=== PATIENT | female | born 1930 | race Caucasian/White ===

== ENCOUNTER → 2017-12-18 | Outpatient (CLI) | payer MEDICARE ==
[~2017-12-18] MED LIST: BONIVA150 MG; CEFUROXIME250 MG PO; DONEPEZIL HCL10 MG PO; POTASSIUM CHLO10 ME1 PO; SERTRALINE HCL100 MG PO; SIMVASTATIN20 MG PO; TRIAMTERENE-HC1 EAC2
--- NOTE | 2017-12-26 08:44 | Diagnostic Imaging Report ---
#[id number] - MGSCRLT #UNILATERAL LEFT DIGITAL SCREENING MAMMOGRAM WITH CAD: 12/18/2017 CLINICAL: Routine screening. Comparison is made to exams dated: 12/16/2015 mammogram, 01/27/2015 mammogram and 02/03/2014 mammogram - [facility]. Current study contains 4 films. There are scattered fibroglandular elements in the left breast. Current study was also evaluated with a Computer Aided Detection (CAD) system. There are benign vascular calcifications and calcifications in the left breast. There is a mole marker on the left breast. No significant masses, calcifications, or other findings are seen in the breast. There has been no significant interval change. IMPRESSION: BENIGN There is no mammographic evidence of malignancy. A 1 year screening mammogram is recommended. The patient will be notified by letter of the results. Familia kilpatrick/maggi:12/25/2017 16:41:18 Financial Manager: Shae BEE(R)(M), [facility] letter sent: Compared to Prior B9 Mammogram BI-RADS: 2 Benign
== END ==
LOC: MAMMO 12:54
PROVIDERS: ATTEND Family Medicine
DX: Z12.31 Encounter for screening mammogram for malignant neoplasm of breast (principal)

== ENCOUNTER → 2018-08-28 | Outpatient (CLI) | payer MEDICARE ==
--- NOTE | 2018-08-28 13:37 | Diagnostic Imaging Report ---
EXAM: Renal Ultrasound INDICATION: Urinary tract infection ^[id number] ^1038 ^URINARY TRACT INFECTION COMPARISON: None TECHNIQUE: Transverse and longitudinal images of the kidneys and bladder were obtained. FINDINGS: Right Kidney: Length: 11.3 x 5.7 x 3.7 cm Appearance: Increased echogenicity. Collecting system: No hydronephrosis Stones: None Cyst/Mass: 2.1 x 2.0 x 2.2 cm right mid parapelvic cyst Left Kidney: Length: 9.9 x 4.6 x 3.8 cm Appearance: Normal echogenicity. Collecting system: No hydronephrosis Stones: None Cyst/Mass: 1.7 x 1.3 x 1.6 cm simple appearing mid left renal cyst. Bladder: Normal IMPRESSION: Increased echogenicity in the kidneys could be due to chronic medical renal disease. 2.1 x 2.0 x 2.2 cm right mid parapelvic cyst 1.7 x 1.3 x 1.6 cm simple appearing mid left renal cyst. Signed by: Dr. Balwinder Coon M.D. on 08/28/2018 1:33 PM
--- NOTE | 2018-08-28 14:24 | Diagnostic Imaging Report ---
EXAM: ABDOMEN-1VIEW (KUB) DATE: 08/28/2018 10:10 AM INDICATION: ^[id number] ^1011 ^URINARY TRACT INFECTION COMPARISON: None FINDINGS: Single supine view of the abdomen shows a normal distribution of air in the small and large bowel. There is a 4 mm calcification projected in the left upper abdomen. This may be related to the upper pole left kidney. Curvilinear calcifications projected in the right upper abdomen are more likely vascular or related to gallstones. Fusion hardware is seen in the lower lumbar spine. Vertebral plasty cement is seen in the lower thoracic spine. Bilateral hip arthroplasties are noted. IMPRESSION: 1. Normal bowel pattern. 2. 4 mm calcification possibly related to the upper pole left kidney. 3. Curvilinear calcifications in the right upper abdomen may be related to gallstones or atherosclerotic vessels. Signed by: Dr. Sajan Tiwari M.D. on 08/28/2018 2:20 PM
== END ==
LOC: US 09:53
PROVIDERS: ATTEND Urology
DX: N39.0 Urinary tract infection, site not specified (principal)
CPT/HCPCS: 74018; 76770

== ENCOUNTER → 2018-09-04 | Outpatient (CLI) | payer MEDICARE ==
--- NOTE | 2018-09-04 13:25 | Diagnostic Imaging Report ---
EXAM: CT Abdomen and Pelvis WITHOUT intravenous contrast INDICATION: Renal calculi, flank pain COMPARISON: Renal ultrasound of 08/28/2018, KUB of 08/28/2018 TECHNIQUE: Abdomen and pelvis were scanned utilizing a multidetector helical scanner from the lung base to the pubic symphysis without administration of IV contrast. Coronal and sagittal reformations were obtained. IV CONTRAST: None ORAL CONTRAST: None COMPLICATIONS: None RADIATION DOSE: Total DLP: 356.4 mGy*cm Dose modulation, iterative reconstruction, and/or weight based adjustment of the mA/kV was utilized to reduce the radiation dose to as low as reasonably achievable. FINDINGS: LOWER THORAX: Images of the lung bases are degraded by respiratory motion artifact. Possible 5 mm right middle lobe nodule (image 3 series 3). No focal consolidation. Moderate sliding hiatal hernia. HEPATOBILIARY: No focal hepatic lesions. No biliary ductal dilatation. The gallbladder appears unremarkable. SPLEEN: No splenomegaly. PANCREAS: No focal masses or ductal dilatation. ADRENALS: No adrenal nodules. KIDNEYS/URETERS: No hydronephrosis. The large calcifications on the right seen on prior KUB reflect vascular calcifications rather than renal calculi. There is a punctate 3 mm nonobstructive right lower pole renal calculus. A 3.3 cm hyperattenuating mass is seen at the lateral lower pole of the left kidney with some internal calcifications. There is also a 2.5 cm simple cyst at the left lower pole and a 1.8 cm left midpole cyst. PELVIC ORGANS/BLADDER: Extensive streak artifact from bilateral hip arthroplasty obscures evaluation of most of the pelvis. No large mass lesions identified. PERITONEUM / RETROPERITONEUM: No free air or fluid. LYMPH NODES: No lymphadenopathy. VESSELS: Atherosclerotic calcifications involve the nonaneurysmal abdominal aorta and major branches. GI TRACT: Sigmoid and descending colonic diverticulosis with no CT evidence of diverticulitis. No abnormal bowel wall thickening or bowel obstruction. Normal appendix. BONES AND SOFT TISSUES: Bilateral total hip replacement. Posterior lumbar spinal fusion at L4 through S1. Old compression fracture of L1 status post vertebral augmentation. Diffuse degenerative changes of the remainder of the visualized spine. Diffuse osteopenia. IMPRESSION: Large calcifications overlying the right kidney seen on prior KUB represent vascular calcifications rather renal calculi. 3.3 cm hyperattenuating mass at the lateral aspect of the lower pole of the left kidney with some internal calcifications is incompletely evaluated on this noncontrast CT. Recommend contrast enhanced renal mass protocol CT or MRI for further evaluation. Punctate 3 mm nonobstructive right lower pole renal calculus. Signed by: Layla Banegas MD on 09/04/2018 1:22 PM
== END ==
LOC: CT 09:19
PROVIDERS: ATTEND Urology
DX: N20.0 Calculus of kidney (principal)
CPT/HCPCS: 74176

== ENCOUNTER → 2018-09-18 | Outpatient (CLI) | payer MEDICARE ==
[~2018-09-18] MED LIST changes: +CETIRIZINE HCL10 MG; +COLACE100 MG PO; +MELATONIN3 MG PO
[2018-09-18 08:54] LABS: CREATININE, SERUM 2.13 mg/dL (0.57-1.11)
== END ==
LOC: LAB 05:00 → CT 07:32
PROVIDERS: ATTEND Urology
DX: N28.1 Cyst of kidney, acquired (principal)
CPT/HCPCS: 36415; 82565; 84520

== ENCOUNTER → 2018-10-01 | Outpatient (CLI) | payer MEDICARE ==
[~2018-10-01] MED LIST changes: -CETIRIZINE HCL10 MG; -COLACE100 MG PO; -MELATONIN3 MG PO
--- NOTE | 2018-10-01 14:57 | Diagnostic Imaging Report ---
MRI of the abdomen, without contrast, 10/01/2018. History: Evaluation of left renal lesion. Comparison: CT 09/04/2018, ultrasound 08/28/2018. Technique: Multiplanar, multisequence imaging of the abdomen was performed without contrast due to patient abnormal renal function. Discussion: Elevation is limited without IV contrast. 2 oval circumscribed T2-hyperintense, T1-isointense lesions are present in the left kidney, the largest in the lower pole measuring 3.6 x 2.7 cm, consistent with simple cysts. Additionally, multiple oval T2-hypointense, T1-isointense lesions are present in both kidneys, the largest on the right in the lower pole measuring 1.5 cm and the largest on the left located in the lower pole measuring 2.4 x 3.6 cm, which corresponds to the hyperdense lesion described on the CT. The lesion has homogeneous signal intensity. Evaluation for enhancement cannot be made without IV contrast. The kidneys are normal in size bilaterally. There is no evidence of hydronephrosis. The liver, gallbladder, spleen, pancreas, and adrenal glands are unremarkable. The visualized loops of bowel are unremarkable. There is no evidence of adenopathy. IMPRESSION: Left renal lower pole lesion most likely represents a hemorrhagic/proteinaceous cyst. Additional complicated cysts are noted bilaterally as well as 2 simple cysts on the left. Follow-up CT or MRI in 6 months may be obtained. Signed by: Delfin Billingsley on 10/01/2018 2:54 PM
== END ==
LOC: MRI 09:23
PROVIDERS: ATTEND Urology
DX: N28.1 Cyst of kidney, acquired (principal)
CPT/HCPCS: 74181

== ENCOUNTER 2018-11-21 12:27 | Inpatient (IN) | payer MEDICARE ==
[~2018-11-21] VITALS: Ht 160 cm; Wt 63.5 kg
--- OUTSIDE RECORDS SUMMARY | 2018-11-21 12:30 | XMS REPORT ---
Author Author [facility] Address Unknown Phone Unavailable Care Team Providers Care Bee Producer Name Role Phone ARNULFO JAEGER Unavailable Unavailable Jim FELICIANO Unavailable Unavailable Problems This patient has no known problems. Allergies, Adverse Reactions, Alerts This patient has no known allergies or adverse reactions. Medications This patient has no known medications. Results Test Description Test Time Test Comments Text Results Atomic Results Result Comments MRI ABDOMEN WO 2018-10-01 14:38:00 [place] [address] Patient Name: Jovita MAIER MR #: [id number] : 1930 Age/Sex: 88/F Req #: [id number] Adm Physician: Ordered by: ARNULFO JAEGER MD Report #: [id number] Location: MRI Room/Bed: Procedure: [id number] MRI/MRI ABDOMEN WO Exam Date: Exam Time: REPORT STATUS: Signed MRI of the abdomen, without contrast, 10/01/2018. History: Lucita luation of left renal lesion. Comparison: CT 09/04/2018, ultrasound 08/28/2018. Technique: Multiplanar, multisequence imaging of the abdomen was performed without contrast due to patient abnormal renal function. Discussion: Elevation is limited without IV contrast. 2 oval circumscribed T2-hyperintense, T1-isointense lesions are present in the left kidney, the largest in the lower pole measuring 3.6 x 2.7 cm, consistent with simple cysts. Additionally, multiple oval T2-hypointense, T1-isointense lesions are present in both kidneys, the largest on the right in the lower pole measuring 1.5 cm and the largest on the left located in the lower pole measuring 2.4 x 3.6 cm, which corresponds to the hyperdense lesion described on the CT. The lesion has homogeneous signal intensity. Evaluation for enhancement cannot be made without IV contrast. The kidneys are normal in size bilaterally. There is no evidence of hydronephrosis. The liver, gallbladder, spleen, pancreas, and adrenal glands are unremarkable. The visualized loops of bowel are unremarkable. There is no evidence of adenopathy. IMPRESSION: Left renal lower pole lesion most likely represents a hemorrhagic/proteinaceous cyst. Additional complicated cysts are noted bilaterally as well as 2 simple cysts on the left. Follow-up CT or MRI in 6 months may be obtained. Signed by: Delfin Billingsley on 10/01/2018 2:54 PM Dictated By: DELFIN BILLINGSLEY MD Transcribed By: DANIEL on 10/01/184 COPY TO: ARNULFO JAEGER MD CT ABDOMEN/PELVIS WO 2018-09-04 13:02:00 [place] [address] Patient Name: Jovita MAIER MR #: [id number] : 1930 Age/Sex: 88/F Req #: [id number] Adm Physician: Ordered by: ARNULFO JAEGER MD Report #: [id number] Location: CT Room/Bed: Procedure: CT/CT ABDOMEN/PELVIS WO Exam Date: 09/04/18 Exam Time: 1000 REPORT STATUS: Signed EXAM: CT Abdomen and Pelvis WITHOUT intravenous contrast INDICATION: Renal calculi, flank pain COMPARISON: Renal ultrasound of 08/28/2018, KUB of 08/28/2018 TECHNIQUE: Abdomen and pelvis were scanned utilizing a multidetector helical scanner from the lung base to the pubic symphysis without administration of IV contrast. Coronal and sagittal reformations were obtained. IV CONTRAST: None ORAL CONTRAST: None COMPLICATIONS: None RADIATION DOSE: Total DLP: 356.4 mGy*cm Dose modulation, iterative reconstruction, and/or weight based adjustment of the mA/kV was utilized to reduce the radiation dose to as low as reasonably achievable. FINDINGS: LOWER THORAX: Images of the lung bases are degraded by respiratory motion artifact. Possible 5 mm right middle lobe nodule (image 3 series 3). No focal consolidation. Moderate sliding hiatal hernia. HEPATOBILIARY: No focal hepatic lesions. No biliary ductal dilatation. The gallbladder appears unremarkable. SPLEEN: No splenomegaly. PANCREAS: No focal masses or ductal dilatation. ADRENALS: No adrenal nodules. KIDNEYS/URETERS: No hydronephrosis. The large calcifications on the right seen on prior KUB reflect vascular calcifications rather than renal calculi. There is a punctate 3 mm nonobstructive right lower pole renal calculus. A 3.3 cm hyperattenuating mass is seen at the lateral lower pole of the left kidney with some internal calcifications. There is also a 2.5 cm simple cyst at the left lower pole and a 1.8 cm left midpole cyst. PELVIC ORGANS/BLADDER: Extensive streak artifact from bilateral hip arthroplasty obscures evaluation of most of the pelvis. No large mass lesions identified. PERITONEUM / RETROPERITONEUM: No free air or fluid. LYMPH NODES: No lymphadenopathy. VESSELS: Atherosclerotic calcifications involve the nonaneurysmal abdominal aorta and major branches. GI TRACT: Sigmoid and descending colonic diverticulosis with no CT evidence of diverticulitis. No a bnormal bowel wall thickening or bowel obstruction. Normal appendix. BONES AND SOFT TISSUES: Bilateral total hip replacement. Posterior lumbar spinal fusion at L4 through S1. Old compression fracture of L1 status post vertebral augmentation. Diffuse degenerative changes of the remainder of the visualized spine. Diffuse osteopenia. IMPRESSION: Large calcifications overlying the right kidney seen on prior KUB represent vascular calcifications rather renal calculi. 3.3 cm hyperattenuating mass at the lateral aspect of the lower pole of the left kidney with some internal calcifications is incompletely evaluated on this noncontrast CT. Recommend contrast enhanced renal mass protocol CT or MRI for further evaluation. Punctate 3 mm nonobstructive right lower pole renal calculus. Signed by: Mandi Purcell MD on 09/04/2018 1:22 PM Dictated By: MANDI PURCELL MD 1322 Transcribed By: DANIEL on 09/04/18 1322 COPY TO: ARNULFO JAEGER MD ABDOMEN-1VIEW (KUB) 2018-08-28 14:17:00 [place] [address] Patient Name: Jovita MAIER MR #: [id number] : 1930 Age/Sex: 88/F Req #: [id number] Adm Physician: Ordered by: ARNULFO JAEGER MD Report #: [id number] Location: Room/Bed: Procedure: [id number] DX/ABDOMEN-1VIEW (KUB) Exam Date: 08/28/18 Exam Time: 1011 REPORT STATUS: Signed EXAM: ABDOMEN-1VIEW (KUB) DATE: 08/28/2018 10:10 AM INDICATION: [id number] 1011 URINARY TRACT INFECTION COMPARISON: None FINDINGS: Single supine view of the abdomen shows a normal distribution of air in the small and large bowel. There is a 4 mm calcification projected in the left upper abdomen. This may be related to the upper pole left kidney. Curvilinear calcifications projected in the right upper abdomen are more likely vascular or related to gallstones. Fusion hardware is seen in the lower lumbar spine. Vertebral plasty cement is seen in the lower thoracic spine. Bilateral hip arthroplasties are noted. IMPRESSION: 1. Normal bowel pattern. 2. 4 mm calcification possibly related to the upper pole left kidney. 3. Curvilinear calcifications in the right upper abdomen may be related to gallstones or atherosclerotic vessels. Signed by: Dr. Sajan Perez M.D. on 08/28/2018 2:20 PM Dictated By: SAJAN PEREZ MD 19 Transcribed By: DANIEL on 08/28/18 142 COPY TO: ARNULFO JAEGER MD US RENAL RETROPERITONEAL COMP 2018-08-28 13:31:00 [place] [address] Patient Name: Jovita MAIER MR #: [id number] : 1930 Age/Sex: 88/F Req #: [id number] Adm Physician: Ordered by: ARNULFO JAEGER MD Report #: [id number] Location: Room/Bed: Procedure: [id number] US/US RENAL RETROPERITONEAL COMP Exam Date: 08/28/18 Exam Time: 1038 REPORT STATUS: Signed EXAM: Renal Ultrasound INDICATION: Urinary tra ct infection [id number] URINARY TRACT INFECTION COMPARISON: None TECHNIQUE: Transverse and longitudinal images of the kidneys and bladder were obtained. FINDINGS: Right Kidney: Length: 11.3 x 5.7 x 3.7 cm Appearance: Increased echogenicity. Collecting system: No hydronephrosis Stones: None Cyst/Mass: 2.1 x 2.0 x 2.2 cm right mid parapelvic cyst Left Kidney: Length: 9.9 x 4.6 x 3.8 cm Appearance: Normal echogenicity. Collecting system: No hydronephrosis Stones: None Cyst/Mass: 1.7 x 1.3 x 1.6 cm simple appearing mid left renal cyst. Bladder: Normal IMPRESSION: Increased echogenicity in the kidneys could be due to chronic medical renal disease. 2.1 x 2.0 x 2.2 cm right mid parapelvic cyst 1.7 x 1.3 x 1.6 cm simple appearing mid left renal cyst. Signed by: Dr. Elsy Kendall M.D. on 08/28/2018 1:33 PM Dictated By: ELSY KENDALL MD, MD 1333 Transcribed By: DANIEL on 08/28/18 1333 COPY TO: ARNULFO JAEGER MD MAMMOGRAPHY DIGITAL SCR UNI LT 2017-12-18 13:46:00 [place] [address] Patient Name: Jovita MAIER MR #: [id number] : 1930 Age/Sex: 87/F Req #: [id number] Adm Physician: Ordered by: EUGENIO FELICIANO MD Report #: [id number] Location: MAMMO Room/Bed: Procedure: [id number] MG/MAMMOGRAPHY DIGITAL SCR UNI LT Exam Date: 12/18/17 Exam Time: 1320 REPORT STATUS: Signed #[id number] - MGSCRLT #UNILATERAL LEFT DIGITAL SCREENING MAMMOGRAM WITH CAD: 12/18/2017 CLINICAL: Routine screening. Comparison is made to exams dated: 12/16/2015 mammogram, 01/27/2015 mammogram and 02/03/2014 mammogram - [facility]. Current study contains 4 films. There are scattered fibroglandular elements in the left breast. Current study was also evaluated with a Computer Aided Detection (CAD) system. There are benign vascular calcifications and calcifications in the left breast. There is a mole marker on the left breast. No significant masses, calcifications, or other findings are seen in the breast. There has been no significant interval change. IMPRESSION: BENIGN There is no mammographic evidence of malignancy. A 1 year screening mammogram is recommended. The patient will be notified by letter of the results. Familia kilpatrick/maggi:12/25/2017 16:41:18 Activities Specialist: Shae BEE(R)(M), [facility] letter sent: Compared to Prior B9 Mammogram BI- RADS: 2 Benign Dictated By: FAMILIA JACOBS DO 1641 Transcribed By: MAGGI on 12/25/17 1641 COPY TO: EUGENIO FELICIANO MD
[2018-11-21] MEDS ORDERED: SODIUM CHLORIDE FLUSH 10 ML SYR INJ PRN (12:45)
[2018-11-21 13:40] LABS: BASOPHILS % 0.6 % (0.0-1.0); EOSINOPHILS # (AUTO) 0.1 (0.0-0.4); EOSINOPHILS % 1.6 % (0.0-6.0); HEMATOCRIT 37.8 % (34.2-44.1); HEMOGLOBIN 12.9 g/dL (12.0-16.0); LYMPHOCYTES # (AUTO) 2.4 (1.0-3.2); LYMPHOCYTES % 34.6 % (18.0-39.1); MEAN CORPUSCULAR HEMOGLOBIN 31.5 pg (28-32); MEAN CORPUSCULAR HGB CONC 34.1 g/dL (31-35); MEAN CORPUSCULAR VOLUME 92.2 fL (81-99); MONOCYTES # (AUTO) 0.5 (0.2-0.8); MONOCYTES % 6.7 % (4.4-11.3); NEUTROPHILS # (AUTO) 3.8 (2.1-6.9); NEUTROPHILS % 56.2 % (38.7-80.0); PLATELET COUNT 285 x10e3/uL (140-360); RED CELL DISTRIBUTION WIDTH 12.7 % (11.7-14.4)
--- NOTE | 2018-11-21 13:42 | NUR ---
PT STATES UNABLE TO GIVE UA AT THIS TIME. OK PER ER MD TO START IV ANTIBIOTIC AND OBTAIN UA ON FLOOR
[2018-11-21 13:56] LABS: ALBUMIN 4.3 g/dL (3.5-5.0); ALBUMIN/GLOBULIN RATIO 1.2 (0.8-2.0); ANION GAP 16.1 mmol/L (8-16); CALCIUM 11.3 mg/dL (8.4-10.2); CREATININE, SERUM 2.49 mg/dL (0.57-1.11); POTASSIUM 3.1 mmol/L (3.5-5.1)
[2018-11-21] MEDS: MEROPENEM 1GM 100 ML IV SCH (14:27)
[2018-11-21 14:29] LABS: CLARITY,URINE SL CLOUDY (CLEAR); COLOR,URINE YELLOW (YELLOW)
[2018-11-21 14:30] LABS: BILIRUBIN,URINE 1+ (NEGATIVE); KETONES,URINE TRACE (NEGATIVE); LEUKOCYTE ESTERASE ,URINE 1+ (NEGATIVE); NITRITE,URINE NEGATIVE (NEGATIVE); PROTEIN,URINE DIPSTICK TRACE (NEGATIVE); URINE UROBILINOGEN 0.2 mg/dL (0.2 - 1)
--- NOTE | 2018-11-21 14:38 | NUR ---
Received patient lying in bed. Respiration even and unlabored without SOB. Call light in reach. at bedside.
[2018-11-21 14:43] LABS: BACTERIA,URINE MANY /HPF
[2018-11-21 14:58] VITALS: BP 132/60
[2018-11-21 15:17] VITALS: BP 132/60
[2018-11-21 16:20] VITALS: BP 132/60
[2018-11-21] MEDS: SODIUM CHLORIDE 0.9% 1000ML 1,000 ML IV SCH (17:00)
[2018-11-21] MEDS ORDERED: MELATONIN3 MG PO (18:14)
[2018-11-21] MEDS ORDERED: COLACE100 MG PO (18:14)
[2018-11-21] MEDS ORDERED: CETIRIZINE HCL10 MG (18:14)
[2018-11-21] MEDS ORDERED: POTASSIUM CHLORIDE 20 MEQ TAB CR PO STA (18:18)
--- NOTE | 2018-11-21 19:12 | Consultation ---
DATE OF CONSULTATION: REASON FOR CONSULTATION: Acute kidney injury. HISTORY OF PRESENT ILLNESS: The patient is a pleasant 88-year-old female with past medical history of hypertension, recurrent urinary tract infection and dementia, who was admitted with ESBL Escherichia coli urinary tract infection. The patient sees Dr. Garvey as an outpatient and had a urine culture done that showed ESBL Escherichia coli and patient was on cefuroxime that did not help with her infections, so she got directly admitted for IV meropenem. ID has been consulted. The patient currently denies having any nausea, vomiting, or diarrhea. Doctor is at bedside. PAST MEDICAL HISTORY: As above. PAST SURGICAL HISTORY: Back surgery, right knee replacement, hysterectomy. ALLERGIES: CODEINE, PENICILLIN. MEDICATIONS: The patient is on triamterene/hydrochlorothiazide at home and cefuroxime p.o. FAMILY HISTORY: No history of any kidney disease. SOCIAL HISTORY: No history of tobacco, alcohol, or intravenous drug abuse. Lives at home with her . PHYSICAL EXAMINATION: VITAL SIGNS: Blood pressure 132/60, pulse of 74, respirations 16, temperature 98.3. GENERAL: Awake, alert, not in apparent distress. HEENT: PERRLA. Extraocular muscles are intact. NECK: No JVD. HEART: S1, S2. LUNGS: Clear to auscultation bilaterally. ABDOMEN: Soft, nontender, nondistended. Bowel sounds positive. EXTREMITIES: No edema. NEUROLOGIC: No focal deficits. SKIN: No new rash. LABORATORY DATA: Sodium 138, potassium 3.1, chloride 90, CO2 of 27, BUN 40, creatinine 2.49, and glucose 176. Baseline creatinine from 09/18/2018 was 2.13. White count 6.8, hemoglobin 12.9, platelet count is 285. ASSESSMENT/PLAN: 1. Acute on chronic kidney disease stage 4. Baseline creatinine from 09/18/2018 was 2.13 with GFR of 22. This acute worsening is likely prerenal insufficiency secondary to urinary tract infection. Agree with changing to Merrem. Agree with the IV fluid and holding triamterene/hydrochlorothiazide for now. The patient had a renal ultrasound done in August 2018 that showed right kidney was 11.3 cm and left kidney was 9.9 cm with renal cysts. We will not repeat the renal ultrasound at this point. Avoid all nephrotoxic medications. Antibiotic doses per creatinine clearance. 2. Extended spectrum beta-lactamase Escherichia coli urinary tract infection. Meropenem 500 mg IV q. 24 hours. ID has been consulted. 3. Hypertension, currently controlled. Hold diuretics. Discussed with the daughter at bedside. I want to thank Dr. Burgess for the consult. MD TONJA Huerta/NIKOS /[id number]
--- NOTE | 2018-11-21 19:25 | NUR ---
Report given to night shift supervisor. Respiration even and unlabored without SOB. Call light in reach.
[2018-11-21 19:30] VITALS: BP 96/53
--- NOTE | 2018-11-21 19:30 | NUR ---
patient received awake, alert, sitting up in chair. vss. no c/o pain noted. ivf continue to infuse without difficulty. pm assessment complete. noted at the bedside. patient/ instructed to call for assistance when needed.
[2018-11-21 20:00] VITALS: BP 96/53
[2018-11-21] MEDS: DONEPEZIL HCL 5 MG TAB PO SCH (20:17)
[2018-11-21] MEDS: SIMVASTATIN 20 MG TAB PO SCH (20:17)
[2018-11-21] MEDS: DOCUSATE SODIUM 100 MG CAP PO SCH (20:17)
[2018-11-21] MEDS ORDERED: SERTRALINE HCL 100 MG TAB PO SCH (21:00)
[2018-11-21] MEDS ORDERED: MELATONIN 3 MG TAB PO PRN (21:00)
[2018-11-22] VITALS (8 sets, daily range): BP systolic 102–119; BP diastolic 52–69
[2018-11-22] MEDS: MEROPENEM 1GM 100 ML IV SCH ×2 (00:26→14:12)
--- NOTE | 2018-11-22 00:38 | History and Physical ---
The patient is an 88-year-old female who was admitted directly from Dr. Garvey's office for urinary tract infection, failed outpatient treatment, need of IV antibiotic. HISTORY OF PRESENT ILLNESS: Ms. Garcias is an 88-year-old female with a frequent history of UTI, referred to Dr. Garvey for urinary tract infections, who was on sulfamethoxazole for long-term, but the last visit, the patient had a urinary culture done and the patient grew out ESBL, sensitive to only IV antibiotics and resistant to p.o. antibiotics. The patient was admitted to the hospital, started on Merrem and a consult with Dr. Berry was done too. The patient remained on Merrem and also was found to have a creatinine level of 2.49, baseline was 1.34. The patient also has a consult with Nephrology. PAST MEDICAL HISTORY: History of dementia, history of hypertension, history of hyperlipidemia, history of depression, and history of insomnia. MEDICATIONS: Medicines she takes at home are sertraline 100 mg daily, Dyazide 37.5/25 mg daily, simvastatin 20 mg daily, cefuroxime axetil 250 mg daily, donepezil 23 mg daily and melatonin 6 mg at evening. The patient also was taking sulfamethoxazole/trimethoprim one daily also takes cranberry tablets stool softeners as needed and Tylenol p.r.n. at bedtime, SOCIAL HISTORY: Lives with . No EtOH. No IV drug abuse. No history of smoking either. ALLERGIES: ALLERGIC TO PENICILLIN AND CODEINE. CODE STATUS: The patient is a full code. PHYSICAL EXAMINATION: GENERAL: The patient is alert and oriented x2, comes in and out of admission. CVS: S1 and S2 normal. Regular rate and rhythm. ABDOMEN: Soft, nontender, and nondistended. EXTREMITIES: No clubbing. No cyanosis. No edema. LABORATORY VALUES: Initial white count is 6.84, hemoglobin 12.9, and hematocrit 37.8. The patient's sodium is 138, potassium 3.1, BUN of 40, creatinine of 2.49, glucose is 176, and calcium of 11.3. MICROBIOLOGY: Urine cultures and blood cultures are pending, but urine culture from Dr. Garvey office grew ESBL. ASSESSMENT: 1. Urinary tract infection, failed outpatient treatment with multi-drug resistant ESBL. 2. History of dementia. 3. Hypertension. 4. Chronic kidney disease with acute renal injury and dehydration. PLAN: Hold back on the Dyazide. Continue with cefuroxime axetil. The patient also have the Merrem on going. A PICC line was ordered. The patient could not elevated with a diuresis, we will continue the fluids and keep ongoing fluids. Hold back on the diuretics. Further recommendation per clinical course. We will continue to monitor the patient. FINAL DIAGNOSIS: Urinary tract infection, acute on chronic kidney disease, and dementia with depression. Further recommendation per clinical course. We will continue to monitor the patient with ID and also with Nephrology and Neurology. MD JOSE ALEJANDRO Crooks/MODL /[id number]
--- NOTE | 2018-11-22 06:00 | NUR ---
patient appears to be resting quietly. no c/o pain noted throughout the night. ivf continue to infuse without difficulty. remains at the bedside.
[2018-11-22] MEDS: SODIUM CHLORIDE 0.9% 1000ML 1,000 ML IV SCH ×2 (06:33→07:58)
[2018-11-22 06:50] LABS: BASOPHILS % 0.8 % (0.0-1.0); EOSINOPHILS # (AUTO) 0.1 (0.0-0.4); EOSINOPHILS % 2.8 % (0.0-6.0); HEMATOCRIT 30.2 % (34.2-44.1); LYMPHOCYTES # (AUTO) 1.3 (1.0-3.2); MEAN CORPUSCULAR HGB CONC 33.1 g/dL (31-35); MEAN CORPUSCULAR VOLUME 93.5 fL (81-99); MONOCYTES # (AUTO) 0.4 (0.2-0.8); MONOCYTES % 11.2 % (4.4-11.3); NEUTROPHILS % 50.7 % (38.7-80.0); PLATELET COUNT 199 x10e3/uL (140-360); RED BLOOD COUNT 3.23 x10e6/uL (3.6-5.1); RED CELL DISTRIBUTION WIDTH 12.6 % (11.7-14.4)
[2018-11-22 07:06] LABS: ANION GAP 13.1 mmol/L (8-16); CALCIUM 9.5 mg/dL (8.4-10.2); CREATININE, SERUM 1.58 mg/dL (0.57-1.11); POTASSIUM 3.1 mmol/L (3.5-5.1)
--- NOTE | 2018-11-22 07:10 | NUR ---
RECEIVED PATIENT LYING IN BED WITH EYES OPEN. RESPIRATION EVEN AND UNLABORED WITHOUT SOB. SPOUSE AT BEDSIDE. CALL LIGHT IN REACH.
--- NOTE | 2018-11-22 07:29 | Progress Note ---
DATE: SUBJECTIVE: The patient is an 88-year-old female with a history of recurrent urinary tract infection, dementia, and infection of the hardware from orthopedic intervention with continuum of antibiotics at home. OBJECTIVE: GENERAL: The patient is currently alert and oriented x1, in and out of confusion. No chest pain. No shortness of breath. The patient's is by the bedside. VITAL SIGNS: Temperature is 97.6, pulse of 62, respirations of 20, blood pressure is 113/55, pulse oximetry 100%. HEENT: Normocephalic, atraumatic. Pupils reactive to light and accommodation. CVS: S1 and S2 normal. Regular rate and rhythm. ABDOMEN: Nontender and nondistended. EXTREMITIES: No clubbing, no cyanosis, no edema. LABORATORY VALUES: Today's numbers are pending. Hemoglobin is 12.9, hematocrit 37.8, BUN 40, creatinine of 2.49 from yesterday, pending from today. Urine positive for urinary tract infection. MICROBIOLOGY: Urine cultures and blood cultures are pending. Again, labs from Dr. Garvey's office shows ESBL positive, sensitive to Merrem. ASSESSMENT: 1. Urinary tract infection. 2. Delirium. 3. Dementia. 4. Hyperlipidemia. 5. Hardware infection with ongoing cephalosporin treatment. PLAN: Continue on Merrem. ID consult has been done. Probiotics will be added. We will await for urine cultures and blood cultures to come back. Further recommendation and clinical course. A PICC line will be placed after creatinine has normalized. The patient has acute renal failure with the last creatinine of 2.4. Diuretics have been stopped and also the patient has been started on IV fluids at 70 mL an hour. MD JOSE ALEJANDRO Crooks/MODL /[id number]
[2018-11-22] MEDS: CEFUROXIME AXETIL 250 MG TAB PO SCH (08:51)
[2018-11-22] MEDS: LACTOBACILLUS ACIDOPHILUS CAPSULE PO SCH ×3 (08:51→17:29)
[2018-11-22] MEDS: SERTRALINE HCL 100 MG TAB PO SCH (08:57)
[2018-11-22] MEDS ORDERED: NON-FORMULARY MEDICATION (Donepezil Hcl 10 MG) PO SCH (09:00)
[2018-11-22] MEDS ORDERED: POTASSIUM CHLORIDE 20 MEQ TAB CR PO ONE (09:10)
[2018-11-22 14:06] LABS: INR 0.92; PROTHROMBIN TIME 12.9 seconds (11.9-14.5)
[2018-11-22] MEDS ORDERED: SODIUM CHLORIDE 0.9% 250ML 250 ML ONE (15:28)
[2018-11-22] MEDS ORDERED: LIDOCAINE HCL 1% LOCAL INJ 20 ML VIAL ONE (15:28)
--- NOTE | 2018-11-22 15:48 | NUR ---
Transported patient to radiology via stretcher for central line placement.
[2018-11-22] MEDS: DOCUSATE SODIUM 100 MG CAP PO SCH (17:22)
[2018-11-22] MEDS: SIMVASTATIN 20 MG TAB PO SCH (17:29)
[2018-11-22] MEDS: DONEPEZIL HCL 5 MG TAB PO SCH (17:29)
--- NOTE | 2018-11-22 17:46 | Diagnostic Imaging Report ---
PROCEDURE: Tunneled central venous catheter placement Procedural Personnel Attending physician(s): Layla Banegas MD Fellow physician(s): None Resident physician(s): None Advanced practice provider(s): None Pre-procedure diagnosis: Bacteremia, urinary tract infection Post-procedure diagnosis: Same Indication: Administration of intermediate antibiotics Additional clinical history: None Complications: No immediate complications. IMPRESSION: Insertion of right-sided single-lumen tunneled Proline catheter, with tip in the expected location of the cavoatrial junction. Plan: The catheter may be used immediately. PROCEDURE SUMMARY: - Venous access with ultrasound guidance - Tunneled central venous catheter insertion with fluoroscopic guidance - Additional procedure(s): None PROCEDURE DETAILS: Pre-procedure Consent: Informed consent for the procedure including risks, benefits and alternatives was obtained and time-out was performed prior to the procedure. Preparation (MIPS): The site was prepared and draped using all elements of maximal sterile barrier technique including sterile gloves, sterile gown, cap, mask, large sterile sheet, sterile ultrasound probe cover, hand hygiene and cutaneous antisepsis with 2% chlorhexidine. Medical reason for site preparation exception (MIPS): Not applicable Anesthesia/sedation Level of anesthesia/sedation: No sedation Access Local anesthesia was administered. The vessel was sonographically evaluated and determined to be patent. Real time ultrasound was used to visualize needle entry into the vessel and a permanent image was stored. Vein accessed: Internal jugular vein Access technique: Micropuncture set with 21 gauge needle Catheter placement An incision was made near the venous access site and the catheter was tunneled subcutaneously to the venous access site and trimmed to appropriate length. The catheter was advanced via a peel-away sheath into the vein under fluoroscopic guidance. Catheter tip location was fluoroscopically verified and a permanent image was stored. Catheter placed: Medcomp Proline single lumen power injectable Catheter size (Hebrew): 6 Catheter flush: Normal saline Closure A sterile dressing was applied. Access site closure technique: Tissue adhesive Catheter securement technique: Non-absorbable suture Contrast Contrast agent: None Radiation Dose Fluoroscopy time (minutes): 0.4 Reference air kerma (mGy): 2.53 Additional Details Additional description of procedure: None Equipment details: None Specimens removed: None Estimated blood loss (mL): Less than 10 Standardized report: [email or web address] Attestation Signer name: Layla Banegas MD I attest that I was present for the entire procedure. I reviewed the stored images and agree with the report as written. Signed by: Layla Banegas MD on 11/22/2018 5:42 PM
--- NOTE | 2018-11-22 19:03 | NUR ---
Report given to die maker bench stamping. Respiration even and unlabored without SOB. Call light in reach.
--- NOTE | 2018-11-22 19:15 | NUR ---
patient received awake, alert, lying quietly in bed. no c/o pain noted. ivf continue to infuse without difficulty. pm assessment complete. remains at the bedside. patient/ instructed to call for assistance when needed.
--- NOTE | 2018-11-22 20:13 | Consultation ---
DATE OF CONSULTATION: REASON FOR CONSULTATION: UTI, multidrug resistant, failing oral antibiotic. HISTORY OF PRESENT ILLNESS: This patient, who is an 88-year-old white female with history of dementia, history of chronic kidney disease, history of renal stone, back surgery, right knee replacement, and hysterectomy. Apparently, back in 2011, she had back wound infection got septic and she had hardware and Infectious Disease at that time told the , she needed to be on antibiotics for the rest of her life. The patient has been having problem with recurrent UTI and she has been on several antibiotics for the last two years or so. She has been seen by Dr. Jersey Garvey. The patient recently grew multidrug resistant pathogen. She was changed here. She was given nitrofurantoin, but in spite of that she was not getting any better. She was sent here to the hospital. She was started on meropenem. I am asked to see her. The patient, who is currently alert, pleasantly confused, sitting in a chair, at the bedside, could not obtain review of systems, but all the history was taken mainly from the . He is telling me that her mental status got worse and she takes antibiotics and that makes her feel better. The patient has no fever and no chills, however. MEDICTATIONS: The patient is currently on: 1. Zoloft. 2. Probiotic. 3. Cefuroxime. 4. Meropenem. LABORATORY DATA: Reviewed. Her urine cultures, gram-negative rods. Her white count is 3.9 and hemoglobin of 10. Her sodium 140, potassium 3.1, and creatinine 1.58, down from 2.49. REVIEW OF SYSTEMS: Per . Otherwise, she is about the same. PHYSICAL EXAMINATION: GENERAL: She is alert, confused, very pleasant. VITAL SIGNS: Stable. Currently afebrile. HEENT: She is not icteric. NECK: Supple. CHEST: Few rhonchi bilaterally. COR: S1 and S2. ABDOMEN: Soft. IMPRESSION AND PLAN: Urinary tract infection, multidrug resistant. Continue meropenem. Await cultures. We will try to give her two weeks of antibiotics to see if it does make any difference clinically, it is hard to assess in a patient, who does have dementia. Chronic back infection, infected hardware, continue with oral cefuroxime as ordered above for life. Acute kidney injury over chronic kidney disease, would need a central line for her IV antibiotics since she has chronic kidney disease. We will follow. MD IRWIN Morataya/NIKOS /[id number]
[2018-11-23] VITALS (7 sets, daily range): BP systolic 109–152; BP diastolic 55–77
--- NOTE | 2018-11-23 | NUR ---
patient appears to be resting quietly. no signs of pain/discomfort noted. ivf continue to infuse without difficulty. remains at the bedside.
[2018-11-23] MEDS: MEROPENEM 1GM 100 ML IV SCH ×2 (00:41→13:00)
[2018-11-23] MEDS: SODIUM CHLORIDE 0.9% 1000ML 1,000 ML IV SCH (01:31)
--- NOTE | 2018-11-23 06:00 | NUR ---
am labs drawn from right ij tunneled catheter without difficulty and sent to lab. here to see patient. patients inquiring about possible discharge home today. home ivabx need to be arranged by case management prior to discharging. patients made aware of this. will inform day shift nurse to ask case management this am when this might be arranged.
[2018-11-23 07:00] LABS: ANION GAP 11.1 mmol/L (8-16); CALCIUM 9.3 mg/dL (8.4-10.2); CREATININE, SERUM 1.02 mg/dL (0.57-1.11); POTASSIUM 3.1 mmol/L (3.5-5.1)
--- NOTE | 2018-11-23 07:30 | NUR ---
RECEIVED PT RESTING QUIETLY. FAMILY AT BEDSIDE.
[2018-11-23] MEDS ORDERED: POTASSIUM CHLORIDE 20 MEQ TAB CR PO ONE (09:00)
[2018-11-23] MEDS: SERTRALINE HCL 100 MG TAB PO SCH (09:00)
[2018-11-23] MEDS: LACTOBACILLUS ACIDOPHILUS CAPSULE PO SCH ×3 (09:00→17:56)
[2018-11-23] MEDS: CEFUROXIME AXETIL 250 MG TAB PO SCH (09:00)
--- NOTE | 2018-11-23 10:30 | NUR ---
PT UP IN CHAIR. FAMILY AT BEDSIDE.
--- NOTE | 2018-11-23 13:31 | Progress Note ---
DATE: SUBJECTIVE: The patient did well overnight post resection. She had quite an increased frequency of sundowning. OBJECTIVE: VITAL SIGNS: Stable. She is afebrile. GENERAL: No apparent distress, lying in bed. CARDIOVASCULAR: Regular rate and rhythm. LUNGS: Clear to auscultation bilaterally. ABDOMEN: Good bowel sounds. Soft and nontender. EXTREMITIES: No clubbing or cyanosis. NEUROLOGIC: Moves all extremities x4. ASSESSMENT AND PLAN: 1. Urinary tract infection with multidrug resistant organism. Continue with current care per Infectious Disease. 2. Dementia. Continue with current care. 3. Anemia. Continue to monitor. 4. Chronic kidney disease, stage 3. Continue to monitor. 5. Hypokalemia. We will also continue to monitor p.r.n. Please see hospital chart for full details. MD ALISA Haji/NIKOS /[id number]
--- NOTE | 2018-11-23 14:30 | NUR ---
PT GIVEN A SHOWER AND REMAINS IN CHAIR.
[2018-11-23] MEDS: DONEPEZIL HCL 5 MG TAB PO SCH (17:55)
[2018-11-23] MEDS: DOCUSATE SODIUM 100 MG CAP PO SCH (17:55)
[2018-11-23] MEDS: SIMVASTATIN 20 MG TAB PO SCH (17:56)
--- NOTE | 2018-11-23 18:12 | Progress Note ---
DATE: SUBJECTIVE: Ms. Garcias remains confused. No new problem. REVIEW OF SYSTEMS: Could not be obtained, but she seems stable. LABORATORY DATA: Her urine is showing Klebsiella pneumoniae extended spectrum beta-lactamase. Her blood cultures remained negative. Her white count is 3.9, hemoglobin 10, sodium 142, potassium 3.1. PHYSICAL EXAMINATION: GENERAL: She is alert, confused. VITAL SIGNS: Stable. Currently, afebrile. HEENT: Not icteric. NECK: Supple. CHEST: Clear. COR: S1, S2. No murmur. ABDOMEN: Soft. IMPRESSION: Urinary tract infection with Klebsiella pneumoniae extended spectrum beta- lactamase. Continue with meropenem. Her kidney function did improve with drop from 2.49 to 1.2. We will do meropenem 500 IV q.8 for 14 days. We will follow. MD IRWIN Morataya/NIKOS /[id number]
--- NOTE | 2018-11-23 19:00 | NUR ---
patient received awake, alert, lying quietly in bed. no c/o pain noted. pm assessment complete. noted at the bedside. patient/ instructed to call for assistance when needed.
--- NOTE | 2018-11-23 19:00 | NUR ---
REPORT GIVEN TO ON COMING SHIFT
[2018-11-24] VITALS (8 sets, daily range): BP systolic 106–134; BP diastolic 54–88
[2018-11-24] MEDS: MEROPENEM 1GM 100 ML IV SCH ×2 (01:00→13:00)
--- NOTE | 2018-11-24 01:00 | NUR ---
patient appears to be resting quietly. no c/o pain noted. remains at the bedside.
--- NOTE | 2018-11-24 05:15 | NUR ---
am labs drawn from right ij tunneled catheter without difficulty.
[2018-11-24 06:13] LABS: ANION GAP 12.2 mmol/L (8-16); CALCIUM 9.1 mg/dL (8.4-10.2); CREATININE, SERUM 0.96 mg/dL (0.57-1.11); POTASSIUM 3.2 mmol/L (3.5-5.1)
--- NOTE | 2018-11-24 06:50 | NUR ---
PT RESTING QUIETLY ON BEDSIDE ROUNDS. AT BEDSIDE.
--- NOTE | 2018-11-24 08:30 | NUR ---
PT UP IN CHAIR FOR BREAKFAST. AT SIDE.
[2018-11-24] MEDS: SERTRALINE HCL 100 MG TAB PO SCH (09:00)
[2018-11-24] MEDS: LACTOBACILLUS ACIDOPHILUS CAPSULE PO SCH ×3 (09:00→18:19)
[2018-11-24] MEDS: CEFUROXIME AXETIL 250 MG TAB PO SCH (09:00)
[2018-11-24] MEDS ORDERED: POTASSIUM CHLORIDE 20 MEQ TAB CR PO ONE (09:30)
[2018-11-24] MEDS: SIMVASTATIN 20 MG TAB PO SCH (18:19)
[2018-11-24] MEDS: DONEPEZIL HCL 5 MG TAB PO SCH (18:19)
[2018-11-24] MEDS: DOCUSATE SODIUM 100 MG CAP PO SCH (18:19)
--- NOTE | 2018-11-24 18:40 | NUR ---
REPORT GIVEN TO ON COMING SHIFT. STATUS REMAIN UNCHANGED
--- NOTE | 2018-11-24 19:22 | NUR ---
Received bedside report from night nurse. Patient resting in bed, no s/s of distress or c/o pain at this time. All safety measures in place. Family at bedside. Will continue to monitor.
[2018-11-25] VITALS: BP 139/71
[2018-11-25] MEDS: MEROPENEM 1GM 100 ML IV SCH (00:08)
[2018-11-25 04:00] VITALS: BP 117/58
[2018-11-25 06:30] LABS: ANION GAP 11.5 mmol/L (8-16); BLOOD UREA NITROGEN 20 mg/dL (7-26); BUN/CREATININE RATIO 24 (6-25); CALCIUM 9.1 mg/dL (8.4-10.2); CARBON DIOXIDE 28 mmol/L (22-29); CHLORIDE 108 mmol/L (98-107); CREATININE, SERUM 0.83 mg/dL (0.57-1.11); EST GLOMERULAR FILTRATION RATE > 60 ML/MIN (60-); GLUCOSE 89 mg/dL (74-118); MAGNESIUM 1.6 MG/DL (1.3-2.1); POTASSIUM 3.5 mmol/L (3.5-5.1); SODIUM 144 mmol/L (136-145)
--- NOTE | 2018-11-25 07:02 | NUR ---
Bedside report given to day nurse. Patient resting in bed, no s/s of distress or c/o pain at this time. All safety measures in place. Family at bedside.
[2018-11-25 08:00] VITALS: BP 117/55
[2018-11-25 09:05] VITALS: BP 117/55
[2018-11-25] MEDS: SERTRALINE HCL 100 MG TAB PO SCH (09:07)
[2018-11-25] MEDS: CEFUROXIME AXETIL 250 MG TAB PO SCH (09:07)
[2018-11-25] MEDS: LACTOBACILLUS ACIDOPHILUS CAPSULE PO SCH (09:07)
--- NOTE | 2018-11-25 09:13 | NUR ---
CALL RECEIVED FROM THE PT'S REQUESTING HOME IV ABX BE ARRANGED. PT GAVE CONSENT TO SEND INFO TO AN INFUSION COMPANY IN NETWORK W THEIR INSURER. STATES HIS HAS DEMENTIA AND WILL ONLY GET WORSE THE LONGER SHE IS IN THE HOSPITAL. VERIFIED DEMOGRAPHICS. WILL F/U W ONCE ORDER IS GIVEN. CALL TO AL W DR ROSA TO VERIFY IF THEY HAVE ORDERS FOR THE PT. AL STATES HE WILL REVIEW THE CHART AND GET BACK W CM. WILL F/U.
--- NOTE | 2018-11-25 10:19 | Progress Note ---
DATE: SUBJECTIVE: The patient is an 88-year-old female, who comes in with a urinary tract infection, multi-drug resistant, failed outpatient treatment. The patient has been started on Merrem q.8 hours. The patient has ESBL growth in the urine. The patient has also got an IJ catheter done after her acute kidney injury had resolved. The patient is currently has no complaints. No chest pain. No shortness of breath. No nausea, vomiting, or diarrhea. The patient is scheduled to go home today. PHYSICAL EXAMINATION: VITAL SIGNS: Temperature is 98.1, blood pressure is 117/58, pulse oximeter of 97%, respiration of 19, and pulse of 80. CVS: S1 and S2 normal. Regular rate and rhythm. ABDOMEN: Nontender, nondistended. EXTREMITIES: No clubbing, no cyanosis, no edema. Right-sided neck IJ present. LABORATORY VALUES: Today's sodium is 144, BUN of 20, creatinine 0.83. Hematology; white count is 3.94, hemoglobin of 10, hematocrit of 30.2, and no left shift present. Coags are normal. MICROBIOLOGY: Noted about Klebsiella, which is sensitive to Merrem. ASSESSMENT: An 88-year-old female with: 1. Urinary tract infection, multi-drug resistant. Continue on Merrem, can be discharged today on Merrem IV q.8 hours for 14 days. 2. Dementia. Continue with donepezil. 3. Hyperlipidemia. Continue with simvastatin. The patient is also on sertraline 100 mg daily. Further recommendation as an outpatient. The patient can be discharged today. MD JOSE ALEJANDRO Crooks/MARTYL /[id number]
[2018-11-25] MEDS ORDERED: MEROPENEM 1GM 100 ML IV SCH (10:45)
[2018-11-25 11:25] VITALS: BP 126/68
--- NOTE | 2018-11-25 12:48 | NUR ---
HOME HEALTH DISCHARGE NOTE PATIENT ADDRESS WHERE SERVICE WILL BE RECEIVED: [address] [facility]. [address] [place] [address] PATIENT CONTACT NUMBER: [phone] NAME OF HOME HEALTH COMPANY: [facility] TELEPHONE/FAX NUMBER OF COMPANY: OFF: [phone] / FAX: [phone] ADDRESS OF COMPANY: [address] [place] [address] [address] [place] [address] SERVICES TO RECEIVE: IV MERREM 500MG IVPB EVERY 12HOURS. LABS; CBC/BMP EVERY SUNDAY WHILE ON MERREM. ARRANGE REMOVAL OF TUNNELED CATH AFTER MERREM COMPLETED. F/U WITH DR. ROSA IN 2 WEEKS. ALL LABS TO BE REPORTED TO DR ROSA'S OFFICE ANTICIPATED DATE SERVICES WILL BEGIN: 11/25/2018 NAME OF [employer] [facility] COMPANY: [facility] TELEPHONE/FAX NUMBER OF COMPANY: OFF: [phone] SERVICES TO RECEIVE: LONG TERM Please call the company above if you have not received a call to schedule a home visit within 24 hours of discharge.
--- NOTE | 2018-11-25 13:45 | NUR ---
patient alert and oriented with at bedside. discharge instructions given at this time, verbalized understanding. IV to remain in place for IV antibiotics at home. Patient to be wheeled out to personal auto for patient to return home.
== END 2018-11-25 15:05 | disposition home or self-care (01) | DRG 690 ==
LOC: ER 12:27 → ERHOLD 12:34 → MED/SURG3 14:44
PROVIDERS: ADMIT Family Medicine; ATTEND Family Medicine
PROC: 0JH63XZ Insertion of Tunneled Vascular Access Device into Chest Subcutaneous Tissue and Fascia, Percutaneous Approach (ICD-10-PCS; principal; 2018-11-21)
PROC: 02HV33Z Insertion of Infusion Device into Superior Vena Cava, Percutaneous Approach (ICD-10-PCS; 2018-11-21)
DX: N39.0 Urinary tract infection, site not specified (principal); Z16.11 Resistance to penicillins; Z16.12 Extended spectrum beta lactamase (ESBL) resistance; N18.4 Chronic kidney disease, stage 4 (severe); N17.9 Acute kidney failure, unspecified; B96.1 Klebsiella pneumoniae [K. pneumoniae] as the cause of diseases classified elsewhere; N18.3 Chronic kidney disease, stage 3 (moderate); E87.6 Hypokalemia; F03.90 Unspecified dementia, unspecified severity, without behavioral disturbance, psychotic disturbance, mood disturbance, and anxiety; I12.9 Hypertensive chronic kidney disease with stage 1 through stage 4 chronic kidney disease, or unspecified chronic kidney disease; B96.20 Unspecified Escherichia coli [E. coli] as the cause of diseases classified elsewhere; D63.1 Anemia in chronic kidney disease; N32.81 Overactive bladder; N28.1 Cyst of kidney, acquired
CPT/HCPCS: 36415; 36558; 74470; 76937; 77001; 80048; 80053; 81001; 83735; 85025; 85610; 87040; 87086; 87186; 99284; J2001; J7030; J7050

== ENCOUNTER → 2019-01-17 | Outpatient (CLI) | payer MEDICARE ==
[~2019-01-17] MED LIST changes: +CETIRIZINE HCL10 MG; +COLACE100 MG PO; +MELATONIN3 MG PO
--- NOTE | 2019-01-24 08:22 | Diagnostic Imaging Report ---
#[id number] - MGSCR[facility] #UNILATERAL LEFT DIGITAL SCREENING MAMMOGRAM WITH CAD: 01/17/2019 CLINICAL: Routine screening. Comparison is made to exams dated: 12/18/2017 mammogram and 12/16/2015 mammogram - [facility]. Current study contains 2 films. There are scattered fibroglandular elements in the left breast. Current study was also evaluated with a Computer Aided Detection (CAD) system. Benign appearing calcifications are noted in the left breast. No significant masses, calcifications, or other findings are seen in the breast. IMPRESSION: BENIGN There is no mammographic evidence of malignancy. A 1 year screening mammogram is recommended. The patient will be notified by letter of the results. MARGARETH LOPEZ M.D. ct/penrad:01/23/2019 15:47:47 Carpenter Repairer: Shae CINTRON)(Rudi), [facility] letter sent: Normal Exam Mammogram BI-RADS: 2 Benign
== END ==
LOC: MAMMO 09:59
PROVIDERS: ATTEND Family Medicine
DX: Z12.31 Encounter for screening mammogram for malignant neoplasm of breast (principal)